=== PATIENT | female | born 1965 | race Caucasian/White ===

== ENCOUNTER 2024-09-29 17:08 | Inpatient (IN) | payer OTHER ==
[2024-09-29] VITALS (14 sets, daily range): BP systolic 113–143; BP diastolic 59–71; PULSE 77–99; RESP 14–25; TEMP 97.4–99.8; O2SAT 95–100
[~2024-09-29] VITALS: Ht 170.2 cm; Wt 103.9 kg
[2024-09-29 18:54] LABS: BASOPHILS % 0.6 % (0.0-1.0); EOSINOPHILS # (AUTO) 0.1 (0.0-0.4); EOSINOPHILS % 0.9 % (0.0-6.0); LYMPHOCYTES # (AUTO) 1.1 (1.0-3.2); LYMPHOCYTES % 21.3 % (18.0-39.1); MEAN CORPUSCULAR HEMOGLOBIN 36.1 pg (28-32); MEAN CORPUSCULAR HGB CONC 29.1 g/dL (31-35); MEAN CORPUSCULAR VOLUME 124.1 fL (81-99); MONOCYTES # (AUTO) 0.3 (0.2-0.8); MONOCYTES % 5.8 % (4.4-11.3); NEUTROPHILS # (AUTO) 3.7 (2.1-6.9); NEUTROPHILS % 69.3 % (38.7-80.0); PLATELET COUNT 221 x10e3/uL (140-360); RED BLOOD COUNT 1.33 x10e6/uL (3.6-5.1); WHITE BLOOD COUNT 5.31 x10e3/uL (4.8-10.8)
[2024-09-29 18:59] LABS: RED CELL DISTRIBUTION WIDTH 22.2 % (11.7-14.4)
[2024-09-29 19:00] LABS: HEMATOCRIT 16.5 % (34.2-44.1); HEMOGLOBIN 4.8 g/dL (12.0-16.0)
[2024-09-29 19:16] LABS: INR 1.06; PROTHROMBIN TIME 14.4 seconds (11.9-14.5)
[2024-09-29 19:17] LABS: PARTIAL THROMBOPLASTIN TIME 27.1 seconds (23.8-35.5)
[2024-09-29 19:25] LABS: ALBUMIN/GLOBULIN RATIO 1.5 (0.8-2.0); ANION GAP 16.7 mmol/L (8-16); BILIRUBIN,TOTAL 6.6 mg/dL (0.2-1.2); CALCIUM 9.4 mg/dL (8.4-10.2); CREATININE, SERUM 0.61 mg/dL (0.57-1.11); POTASSIUM 3.7 mmol/L (3.5-5.1); TOTAL PROTEIN 6.6 g/dL (6.5-8.1)
[2024-09-29] MEDS: IBUPROFEN 400 MG TAB PO ONE (19:40)
[2024-09-29] MEDS ORDERED: ONDANSETRON HCL INJ 2MG/ML 2ML 2 MG/ML VIAL IV PRN (20:30)
[2024-09-29] MEDS ORDERED: ROSUVASTATIN CA20 MG PO (21:31)
[2024-09-29] MEDS ORDERED: AMOX TR-K CLV1 EAC2 PO (21:31)
[2024-09-29] MEDS ORDERED: LOSARTAN POTAS100 MG PO (21:31)
[2024-09-29] MEDS: SODIUM CHLORIDE 0.9% 250ML 250 ML IV ONE (22:41)
[2024-09-30] VITALS (25 sets, daily range): BP systolic 103–151; BP diastolic 52–124; PULSE 68–95; RESP 10–22; TEMP 97.8–98.5; O2SAT 93–100
[2024-09-30 08:27] LABS: BASOPHILS % 0.6 % (0.0-1.0); EOSINOPHILS % 0.6 % (0.0-6.0); HEMOGLOBIN 7.3 g/dL (12.0-16.0); LYMPHOCYTES # (AUTO) 0.5 (1.0-3.2); LYMPHOCYTES % 10.5 % (18.0-39.1); MEAN CORPUSCULAR HEMOGLOBIN 32.4 pg (28-32); MEAN CORPUSCULAR HGB CONC 30.4 g/dL (31-35); MEAN CORPUSCULAR VOLUME 106.7 fL (81-99); MONOCYTES # (AUTO) 0.3 (0.2-0.8); MONOCYTES % 5.3 % (4.4-11.3); NEUTROPHILS # (AUTO) 3.8 (2.1-6.9); NEUTROPHILS % 81.7 % (38.7-80.0); PLATELET COUNT 178 x10e3/uL (140-360); RED BLOOD COUNT 2.25 x10e6/uL (3.6-5.1); RED CELL DISTRIBUTION WIDTH 24.9 % (11.7-14.4); WHITE BLOOD COUNT 4.68 x10e3/uL (4.8-10.8)
[2024-09-30 08:51] LABS: ALBUMIN 3.7 g/dL (3.5-5.0); ALBUMIN/GLOBULIN RATIO 1.4 (0.8-2.0); ANION GAP 15.8 mmol/L (8-16); BILIRUBIN,TOTAL 9.7 mg/dL (0.2-1.2); CALCIUM 9.1 mg/dL (8.4-10.2); CREATININE, SERUM 0.58 mg/dL (0.57-1.11); POTASSIUM 3.8 mmol/L (3.5-5.1); TOTAL PROTEIN 6.3 g/dL (6.5-8.1)
[2024-09-30 14:12] LABS: FERRITIN 514.09 ng/mL (4.63-204.00)
[2024-10-01] VITALS (12 sets, daily range): BP systolic 97–124; BP diastolic 55–106; PULSE 63–87; RESP 18–22; TEMP 97.4–98.9; O2SAT 93–100
[2024-10-01 07:05] LABS: ANION GAP 13.5 mmol/L (8-16); CREATININE, SERUM 0.61 mg/dL (0.57-1.11); POTASSIUM 4.5 mmol/L (3.5-5.1)
[2024-10-01 09:35] LABS: BASOPHILS % 0.7 % (0.0-1.0); EOSINOPHILS # (AUTO) 0.1 (0.0-0.4); EOSINOPHILS % 1.6 % (0.0-6.0); LYMPHOCYTES # (AUTO) 0.7 (1.0-3.2); MEAN CORPUSCULAR HEMOGLOBIN 33.3 pg (28-32); MEAN CORPUSCULAR HGB CONC 29.3 g/dL (31-35); MEAN CORPUSCULAR VOLUME 113.9 fL (81-99); MONOCYTES # (AUTO) 0.2 (0.2-0.8); MONOCYTES % 5.2 % (4.4-11.3); NEUTROPHILS # (AUTO) 2.1 (2.1-6.9); NEUTROPHILS % 68.2 % (38.7-80.0); PLATELET COUNT 173 x10e3/uL (140-360); RED BLOOD COUNT 2.01 x10e6/uL (3.6-5.1); RED CELL DISTRIBUTION WIDTH 25.7 % (11.7-14.4); WHITE BLOOD COUNT 3.05 x10e3/uL (4.8-10.8)
[2024-10-01] MEDS: SODIUM CHLORIDE FLUSH 10 ML SYR INJ PRN (09:38)
[2024-10-01 09:42] LABS: HEMOGLOBIN 6.7 g/dL (12.0-16.0)
[2024-10-01 09:43] LABS: HEMATOCRIT 22.9 % (34.2-44.1)
[2024-10-01 10:31] LABS: ALBUMIN 3.5 g/dL (3.5-5.0); BILIRUBIN,INDIRECT 4.5 mg/dL (0.3-1.2); BILIRUBIN,TOTAL 5.5 mg/dL (0.2-1.2)
[2024-10-01] MEDS: CYANOCOBALAMIN INJ 1,000 MCG/ML VIAL IM ONE (12:45)
[2024-10-01] MEDS: FOLIC ACID 1 MG TAB PO ONE (12:45)
[2024-10-01] MEDS ORDERED: DEXAMETHASONE PHOS 4MG/ML 5ML MULTIDOSE VIAL IV ONE (15:30)
[2024-10-01 16:29] LABS: ALBUMIN 3.5 g/dL (3.5-5.0); ALBUMIN/GLOBULIN RATIO 1.3 (0.8-2.0); ANION GAP 13.8 mmol/L (8-16); BILIRUBIN,TOTAL 5.2 mg/dL (0.2-1.2); CREATININE, SERUM 0.62 mg/dL (0.57-1.11); POTASSIUM 3.8 mmol/L (3.5-5.1); TOTAL PROTEIN 6.2 g/dL (6.5-8.1)
[2024-10-01] MEDS: SODIUM CHLORIDE 0.9% 250ML 250 ML IV ONE (18:41)
[2024-10-02] VITALS (8 sets, daily range): BP systolic 97–145; BP diastolic 55–83; PULSE 62–88; RESP 16–20; TEMP 96–98.5; O2SAT 97–100
[2024-10-02] MEDS: IMMUNE GLOBULIN 10%,10GM/100ML 300 ML IV SCH (00:33)
[2024-10-02 06:02] LABS: HEMATOCRIT 26.3 % (34.2-44.1); HEMOGLOBIN 8.1 g/dL (12.0-16.0); MEAN CORPUSCULAR HEMOGLOBIN 33.3 pg (28-32); MEAN CORPUSCULAR HGB CONC 30.8 g/dL (31-35); MEAN CORPUSCULAR VOLUME 108.2 fL (81-99); PLATELET COUNT 142 x10e3/uL (140-360); RED BLOOD COUNT 2.43 x10e6/uL (3.6-5.1); RED CELL DISTRIBUTION WIDTH 23.9 % (11.7-14.4); WHITE BLOOD COUNT 3.28 x10e3/uL (4.8-10.8)
[2024-10-02 06:26] LABS: ANION GAP 13.4 mmol/L (8-16); CALCIUM 9.4 mg/dL (8.4-10.2); CREATININE, SERUM 0.6 mg/dL (0.57-1.11); POTASSIUM 4.4 mmol/L (3.5-5.1)
[2024-10-02] MEDS: CYANOCOBALAMIN INJ 1,000 MCG/ML VIAL IM SCH (08:43)
[2024-10-02] MEDS: FOLIC ACID 1 MG TAB PO SCH (08:43)
[2024-10-02] MEDS: PREDNISONE 20 MG TAB PO SCH (14:44)
[2024-10-02] MEDS ORDERED: IOPAMIDOL 370 MG/ML 100 ML INFUS..BTL INJ ONE (16:25)
[2024-10-02 17:57] LABS: BAND NEUTROPHILS % (MANUAL) 9 %; LYMPHOCYTES % (MANUAL) 10 % (19-48); NEUTROPHILS % (MANUAL) 81 % (40-74); NUCLEATED RED BLOOD CELLS 1; PLATELET ESTIMATE SLIGHTLY DECREASED; PLATELET MORPHOLOGY COMMENT NORMAL
[2024-10-02 17:58] LABS: ANISOCYTOSIS MODE; BURR CELLS SLIGHT; POIKILOCYTOSIS SLIGHT; POLYCHROMASIA MODERATE
[2024-10-03 04:42] VITALS: BP 115/69; PULSE 65; RESP 20; TEMP 97.3; O2SAT 95
[2024-10-03 06:12] LABS: BASOPHILS % 0.2 % (0.0-1.0); HEMATOCRIT 25.9 % (34.2-44.1); LYMPHOCYTES # (AUTO) 0.4 (1.0-3.2); LYMPHOCYTES % 9.3 % (18.0-39.1); MEAN CORPUSCULAR HGB CONC 30.9 g/dL (31-35); MEAN CORPUSCULAR VOLUME 110.2 fL (81-99); MONOCYTES # (AUTO) 0.2 (0.2-0.8); MONOCYTES % 4.2 % (4.4-11.3); NEUTROPHILS % 85.5 % (38.7-80.0); PLATELET COUNT 141 x10e3/uL (140-360); RED BLOOD COUNT 2.35 x10e6/uL (3.6-5.1); RED CELL DISTRIBUTION WIDTH 25.2 % (11.7-14.4); WHITE BLOOD COUNT 4.71 x10e3/uL (4.8-10.8)
[2024-10-03 06:20] LABS: ALBUMIN 3.4 g/dL (3.5-5.0); ALBUMIN/GLOBULIN RATIO 0.9 (0.8-2.0); ANION GAP 13.3 mmol/L (8-16); BILIRUBIN,TOTAL 1.9 mg/dL (0.2-1.2); CALCIUM 9.1 mg/dL (8.4-10.2); CREATININE, SERUM 0.65 mg/dL (0.57-1.11); POTASSIUM 4.3 mmol/L (3.5-5.1)
[2024-10-03 08:55] VITALS: BP 125/62; PULSE 62; RESP 18; TEMP 98.2; O2SAT 100
[2024-10-03 09:56] VITALS: BP 125/62; PULSE 62; RESP 18; TEMP 98.2; O2SAT 100
[2024-10-03 11:52] VITALS: BP 107/63; PULSE 66; RESP 18; TEMP 97.8; O2SAT 95
[2024-10-03 14:41] LABS: HEMATOCRIT 29.1 % (34.2-44.1); HEMOGLOBIN 8.5 g/dL (12.0-16.0); LYMPHOCYTES # (AUTO) 0.3 (1.0-3.2); LYMPHOCYTES % 6.8 % (18.0-39.1); MEAN CORPUSCULAR HEMOGLOBIN 33.9 pg (28-32); MEAN CORPUSCULAR HGB CONC 29.2 g/dL (31-35); MEAN CORPUSCULAR VOLUME 115.9 fL (81-99); MONOCYTES # (AUTO) 0.2 (0.2-0.8); MONOCYTES % 3.4 % (4.4-11.3); NEUTROPHILS # (AUTO) 4.2 (2.1-6.9); PLATELET COUNT 160 x10e3/uL (140-360); RED BLOOD COUNT 2.51 x10e6/uL (3.6-5.1); RED CELL DISTRIBUTION WIDTH 24.7 % (11.7-14.4); WHITE BLOOD COUNT 4.72 x10e3/uL (4.8-10.8)
[2024-10-03 15:12] VITALS: BP 116/65; PULSE 70; RESP 18; TEMP 98; O2SAT 100
[2024-10-03 20:00] VITALS: BP 101/54; PULSE 67; RESP 18; TEMP 98.3; O2SAT 100
[2024-10-03] MEDS: CYANOCOBALAMIN INJ 1,000 MCG/ML VIAL IM SCH (21:03)
[2024-10-04 00:10] VITALS: BP 116/67; PULSE 57; RESP 18; TEMP 98.3; O2SAT 100
[2024-10-04 05:07] LABS: BASOPHILS % 0.2 % (0.0-1.0); HEMATOCRIT 26.7 % (34.2-44.1); HEMOGLOBIN 7.9 g/dL (12.0-16.0); LYMPHOCYTES % 23.6 % (18.0-39.1); MEAN CORPUSCULAR HEMOGLOBIN 34.5 pg (28-32); MEAN CORPUSCULAR HGB CONC 29.6 g/dL (31-35); MEAN CORPUSCULAR VOLUME 116.6 fL (81-99); MONOCYTES # (AUTO) 0.3 (0.2-0.8); MONOCYTES % 7.4 % (4.4-11.3); NEUTROPHILS # (AUTO) 2.8 (2.1-6.9); NEUTROPHILS % 67.8 % (38.7-80.0); PLATELET COUNT 171 x10e3/uL (140-360); RED BLOOD COUNT 2.29 x10e6/uL (3.6-5.1); RED CELL DISTRIBUTION WIDTH 23.8 % (11.7-14.4); WHITE BLOOD COUNT 4.07 x10e3/uL (4.8-10.8)
[2024-10-04 05:35] LABS: ANION GAP 11.6 mmol/L (8-16); CALCIUM 9.2 mg/dL (8.4-10.2); CREATININE, SERUM 0.65 mg/dL (0.57-1.11); POTASSIUM 4.6 mmol/L (3.5-5.1)
[2024-10-04 09:35] VITALS: BP 116/67; PULSE 57; RESP 18; TEMP 98.3; O2SAT 100
[2024-10-04 10:00] VITALS: BP 108/63; PULSE 59; RESP 20; TEMP 97.8; O2SAT 100
[2024-10-04 14:06] VITALS: BP 105/60; PULSE 58; RESP 18; TEMP 97.9; O2SAT 100
[2024-10-04 18:53] VITALS: BP 118/62; PULSE 61; RESP 20; TEMP 98.6; O2SAT 99
[2024-10-04 20:00] VITALS: BP 116/68; PULSE 57; RESP 18; TEMP 97.9; O2SAT 99
[2024-10-05 00:20] VITALS: BP 126/86; PULSE 63; RESP 18; TEMP 97.6; O2SAT 99
[2024-10-05 05:03] LABS: BASOPHILS % 0.5 % (0.0-1.0); EOSINOPHILS % 0.5 % (0.0-6.0); HEMOGLOBIN 8.5 g/dL (12.0-16.0); LYMPHOCYTES % 23.7 % (18.0-39.1); MEAN CORPUSCULAR HEMOGLOBIN 34.3 pg (28-32); MEAN CORPUSCULAR HGB CONC 29.3 g/dL (31-35); MEAN CORPUSCULAR VOLUME 116.9 fL (81-99); MONOCYTES # (AUTO) 0.4 (0.2-0.8); MONOCYTES % 10.6 % (4.4-11.3); NEUTROPHILS # (AUTO) 2.6 (2.1-6.9); NEUTROPHILS % 63.5 % (38.7-80.0); PLATELET COUNT 129 x10e3/uL (140-360); RED BLOOD COUNT 2.48 x10e6/uL (3.6-5.1); RED CELL DISTRIBUTION WIDTH 22.2 % (11.7-14.4); WHITE BLOOD COUNT 4.05 x10e3/uL (4.8-10.8)
[2024-10-05 05:34] LABS: ALBUMIN 3.3 g/dL (3.5-5.0); ALBUMIN/GLOBULIN RATIO 0.8 (0.8-2.0); ANION GAP 13.1 mmol/L (8-16); BILIRUBIN,TOTAL 1.6 mg/dL (0.2-1.2); CALCIUM 9.3 mg/dL (8.4-10.2); CREATININE, SERUM 0.63 mg/dL (0.57-1.11); POTASSIUM 4.1 mmol/L (3.5-5.1); TOTAL PROTEIN 7.5 g/dL (6.5-8.1)
[2024-10-05 08:38] VITALS: BP 124/65; PULSE 58; RESP 20; TEMP 98.2; O2SAT 100
[2024-10-05 09:45] VITALS: BP 124/65; PULSE 58; RESP 20; TEMP 98.2; O2SAT 100
[2024-10-05 12:16] VITALS: BP 111/68; PULSE 63; RESP 20; TEMP 98.3; O2SAT 100
[2024-10-05 16:05] VITALS: BP 131/62; PULSE 62; RESP 20; TEMP 98.8; O2SAT 100
[2024-10-05] MEDS ORDERED: PREDNISONE20 MG PO (19:11)
[2024-10-05] MEDS ORDERED: PEPCID20 MG PO (19:11)
[2024-10-11 11:13] LABS: HEPATITIS A ANTIBODY IGM (P) Negative; HEPATITIS B CORE IGM (P) Negative; HEPATITIS B SURFACE AG (P) Negative; HEPATITIS C ANTIBODY NonReactive
== END 2024-10-05 20:31 | disposition home or self-care (01) | DRG 810 ==
LOC: ER 19:15 → ERHOLD 20:26 → ICU 20:58 → MED/SURG 10-01 13:30
PROVIDERS: ADMIT Internal Medicine; ATTEND Internal Medicine
PROC: 30233N1 Transfusion of Nonautologous Red Blood Cells into Peripheral Vein, Percutaneous Approach (ICD-10-PCS; principal; 2024-09-29)
DX: D59.10 Autoimmune hemolytic anemia, unspecified (principal); K70.30 Alcoholic cirrhosis of liver without ascites; E11.40 Type 2 diabetes mellitus with diabetic neuropathy, unspecified; E78.5 Hyperlipidemia, unspecified; D72.819 Decreased white blood cell count, unspecified; D69.59 Other secondary thrombocytopenia; R74.01 Elevation of levels of liver transaminase levels; I10 Essential (primary) hypertension; J44.9 Chronic obstructive pulmonary disease, unspecified; F32.A Depression, unspecified; M54.9 Dorsalgia, unspecified; M19.90 Unspecified osteoarthritis, unspecified site; Z87.891 Personal history of nicotine dependence; Z82.49 Family history of ischemic heart disease and other diseases of the circulatory system
CPT/HCPCS: 36415; 71260; 74177; 80048; 80053; 80076; 82248; 82270; 82607; 82728; 82746; 83010; 83540; 83615; 84155; 84466; 85007; 85025; 85027; 85045; 85610; 85730; 86039; 86850; 86880; 86886; 86900; 86920; 88184; 94799; 99252; 99284; J1100; J2470; J3420; J7050; J7512; P9016; Q9967